=== PATIENT | female | born 1980 | race Caucasian/White ===

== ENCOUNTER 2018-08-11 13:08 | Emergency (ER) | payer MEDICAID ==
[~2018-08-11] VITALS: Ht 152.4 cm; Wt 73.1 kg
[2018-08-11 13:15] VITALS: BP 128/73; PULSE 71; Ht 152.4 cm; Wt 73.1 kg
[2018-08-11] MEDS ORDERED: KETOROLAC 30 MG INJ IM STA (13:43)
[2018-08-11] MEDS ORDERED: IBUP-1542 PO (14:48)
[2018-08-11] MEDS ORDERED: TRAM50TA2 PO (14:48)
--- NOTE | 2018-08-11 14:51 | ERD ---
ER Documentation Chief Complaint Chief Complaint back pain x 4 month; left arm numbness HPI 37-year-old female presents with neck pain rating to her left arm for last 4 months patient has a history of trauma or inciting events. She denies any chest pain, shortness breath, fevers. She also has upper back pain. ROS All systems reviewed and are negative except as per history of present illness. Medications Home Meds Active Scripts Ibuprofen* (Motrin*) 600 Mg Tab, 600 MG PO Q6, #20 TAB Prov:CELENA BHAGAT MD 08/11/18 Tramadol HCl (Tramadol HCl) 50 Mg Tablet, 50 MG PO Q4 PRN for PAIN, #16 TAB Prov:CELENA BHAGAT MD 08/11/18 FmHx Family History: No diabetes, No coronary disease, No other Physical Exam Vitals Vital Signs Date Temp Pulse Resp B/P (MAP) Pulse Ox O2 O2 Flow FiO2 Time Delivery Rate 08/11/18 98.1 71 128/73 99 13:15 (91) Physical Exam Const: No acute distress Head: Atraumatic Eyes: Normal Conjunctiva ENT: Normal External Ears, Nose and Mouth. Neck: Full range of motion. No meningismus. Tenderness primary in the left trapezius and left cervical paraspinous muscles. positive reproduction of symptoms with passive range of motion of the neck. Left upper extremity is neurovascular intact. No midline tenderness or deformities. Resp: Clear to auscultation bilaterally Cardio: Regular rate and rhythm, no murmurs Abd: Soft, non tender, non distended. Normal bowel sounds Skin: No petechiae or rashes Back: No midline or flank tenderness Ext: No cyanosis, or edema Neur: Awake and alert Psych: Normal Mood and Affect Results 24 hrs Laboratory Tests Test 08/11/18 14:02 POC Beta HCG, Qualitative NEGATIVE Current Medications Medications Dose Sig/Sima Start Time Status Last (Trade) Ordered Route PRN Stop Time Admin Dose Reason Admin Ketorolac 30 mg ONCE STAT 08/11/18 DC 08/11/18 Tromethamine IM 13:43 14:16 (Toradol) 08/11/18 13:44 Procedures/MDM X-ray C spine 3V Interpreted by me: Bones: No fracture Joints: No dislocation Foreign body: None. Impression-normal cervical spine x-ray Patient was given Toradol 30 mg IM. Patient presents with signs and symptoms of left-sided cervical radicular pain for last 4 months. Current signs or symptoms do not suggest cardiac chest pain, shortness breath, deficits, bacterial infection, additional concerning signs or symptoms. Will treat with tramadol, ibuprofen, recommendations for primary care follow-up and return precautions. The patient was stable with no new complaints during the ER course. Clinically, there is no current evidence to suggest meningitis, sepsis, acute abdomen, pneumonia, stroke, acute coronary syndrome, pulmonary embolism, aortic dissection or any other emergent condition appearing to require further evaluation or hospitalization. Patient counseled regarding my diagnostic impression and care plan. Prior to discharge all questions answered. Pt agrees with treatment plan and understands strict return precautions. Pt is instructed to follow up with primary care provider within 24-48 hours. Precautionary instructions provided including instructions to return to the ER if not improving or for any worsening or changing symptoms or concerns. Departure Diagnosis: Primary Impression: Cervical radicular pain Condition: Stable Patient Instructions: Neck Pain, No Trauma, Radiculopathy, Cervical Additional Instructions: X RAY NORMAL. PROBABLAMENE UN NERVIO DE LA NUCHA. Cheque otro vez con conner doctor primario en el proximo puga or regresa para mas o nueva simptomas. CELENA BHAGAT MD Aug 11, 2018 14:51
== END 2018-08-11 15:10 | disposition home or self-care (01) ==
LOC: FTE 13:08
DX: M54.12 Radiculopathy, cervical region (principal)
CPT/HCPCS: 72040; 81025; 96372; J1885; Z7502

== ENCOUNTER 2018-10-17 09:06 | Emergency (ER) | payer MEDICAID ==
[~2018-10-17] VITALS: Ht 152.4 cm; Wt 72.9 kg
[~2018-10-17 09:06] MED LIST: IBUP-1542 PO; TRAM50TA2 PO
[2018-10-17 09:08] VITALS: BP 123/73; PULSE 77; RESP 19; Ht 152.4 cm; Wt 72.9 kg
[2018-10-17] MEDS ORDERED: MECL12.574 PO (09:37)
[2018-10-17] MEDS ORDERED: IBUP-1542 PO (09:37)
--- NOTE | 2018-10-17 09:38 | ERD ---
ER Documentation Chief Complaint Chief Complaint C/O MEDIAL BACK PAIN X4 MONTHS, DIZZINESS AND VOMITING X5 DAYS HPI 38-year-old female presents complaining of dizziness since 5 days ago. She reports that she was randomly getting dizzy throughout the day without any triggers. She denies any falls or loss of consciousness. She reports previous episode of dizziness about 8 years ago in which she seek medical care for and was diagnosed with stress and anxiety. She was treated for anxiety disorder. She reports that she is not as stressed this time around. She has not taken any medication. She also reports chronic back pain x4 months. She reports that she came to the ER in the past and was treated with ibuprofen that helped her back pain. She denies any changes to her back pain or any new symptoms. He is a sking for refill of her ibuprofen for her back pain. ROS All systems reviewed and are negative except as per history of present illness. Medications Home Meds Active Scripts Ibuprofen* (Motrin*) 600 Mg Tab, 600 MG PO Q8, #30 TAB Prov:ANDRZEJ BARLOW PA-C 10/17/18 Meclizine Hcl* (Antivert*) 12.5 Mg Tab, 25 MG PO Q6H PRN for DIZZINESS, #20 TAB Prov:ANDRZEJ BARLOW PA-C 10/17/18 Ibuprofen* (Motrin*) 600 Mg Tab, 600 MG PO Q6, #20 TAB Prov:CELENA BHAGAT MD 08/11/18 Tramadol HCl (Tramadol HCl) 50 Mg Tablet, 50 MG PO Q4 PRN for PAIN, #16 TAB Prov:CELENA BHAGAT MD 08/11/18 Allergies Allergies: Coded Allergies: No Known Allergy (Unverified , 10/17/18) PMhx/Soc Medical and Surgical Hx: pt denies Medical Hx Hx Alcohol Use: No Hx Substance Use: No Hx Tobacco Use: No FmHx Family History: diabetes Physical Exam Vitals Vital Signs Date Temp Pulse Resp B/P (MAP) Pulse Ox O2 O2 Flow FiO2 Time Delivery Rate 10/17/18 97.2 77 19 123/73 99 09:08 (90) Physical Exam Const: No acute distress Head: Atraumatic Eyes: Normal Conjunctiva ENT: Normal External Ears, Nose and Mouth. Neck: Full range of motion. Resp: Clear to auscultation bilaterally Cardio: Regular rate and rhythm, no murmurs Abd: Soft, non tender, non distended. Normal bowel sounds Skin: No petechiae or rashes Back: Slight tenderness along thoracic midline Ext: No cyanosis, or edema Neur: Awake and alert, no pronator drift, equal sensation and motor strength bilaterally. Cranial nerves II through XII intact Psych: Normal Mood and Affect Results 24 hrs Current Medications Medications Dose Sig/Sima Start Time Status Last (Trade) Ordered Route PRN Stop Time Admin Dose Reason Admin Meclizine 25 mg ONCE ONCE 10/17/18 DC 10/17/18 HCl PO 10:00 09:38 (Antivert) 10/17/18 10:01 Procedures/MDM ED COURSE: The patient was stable throughout ED course. I kept the patient informed of laboratory and diagnostic imaging results throughout the ED course. MEDICATIONS GIVEN: Meclizine Patient tolerated medication well with no adverse reactions. Patient reported improvement in pain. MEDICAL DECISION MAKING: Patient is a 38-year-old female presenting with dizziness x5 days. In the past she has had a previous episode of dizziness and was diagnosed and treated for an anxiety attack. She reports any stressors or anxiety symptoms at this time. This appears to be an episode of vertigo. She was given an dose of meclizine in the ED helped relieve the symptoms but the patient was having. H&P and other data not c/w emergent process (eg. CVA, severe anemia, ACS, arrhythmia, ectopic). She was discharged with a prescription of vertigo. She also reports history of chronic back pain. She was tender midline thoracic region. The pain did not radiate anywhere and appears to be musculoskeletal. Reports that ibuprofen helps the back pain. She is asking for refill of her prescription. She was discharged with ibuprofen. Her vital signs were reviewed. Patient is afebrile. Patient was not hypoxic. Patient was hemodynamically stable. PRESCRIPTION: Meclizine and ibuprofen DISCHARGE: At this time, patient is stable for discharge and outpatient management. I have instructed the patient to follow-up with his/her primary care physician in 1-2 days. I have discussed with the patient the possibility of needing to see a specialist for further workup and imaging studies if symptoms persist. I have instructed the patient to promptly return to the ER for any new or worsening symptoms including increased pain, fever, nausea, vomiting, weakness or LOC. The patient and/or family expressed understanding of and agreement with this plan. All questions were answered. Home care instructions were provided. Disclaimer: Inadvertent spelling and grammatical errors are likely due to EHR/dictation software use and do not reflect on the overall quality of patient care. Also, please note that the electronic time recorded on this note does not necessarily reflect the actual time of the patient encounter. Departure Diagnosis: Primary Impression: Vertigo Additional Impression: Back pain Back pain location: thoracic back pain Chronicity: chronic Back pain laterality: unspecified Qualified Codes: M54.6 - Pain in thoracic spine; G89.29 - Other chronic pain Condition: Fair Patient Instructions: Back Pain (Acute Or Chronic), Vertigo, Unspecified Referrals: [facility] YOU HAVE RECEIVED A MEDICAL SCREENING EXAM AND THE RESULTS INDICATE THAT YOU DO NOT HAVE A CONDITION THAT REQUIRES URGENT TREATMENT IN THE EMERGENCY DEPARTMENT. FURTHER EVALUATION AND TREATMENT OF YOUR CONDITION CAN WAIT UNTIL YOU ARE SEEN IN YOUR DOCTORS OFFICE WITHIN THE NEXT 1-2 DAYS. IT IS YOUR RESPONSIBILITY TO MAKE AN APPOINTMENT FOR FOLOW-UP CARE. IF YOU HAVE A PRIMARY DOCTOR --you should call your primary doctor and schedule an appointment IF YOU DO NOT HAVE A PRIMARY DOCTOR YOU CAN CALL OUR PHYSICIAN REFERRAL HOTLINE AT IF YOU CAN NOT AFFORD TO SEE A PHYSICIAN YOU CAN CHOSE FROM THE FOLLOWING [facility] [address] [facility]. [facility] [address] [facility]. [facility] [address] [facility]. [facility] [address] [facility] [facility] [address] [facility]. [facility]. [address] [facility]. [facility] YOU HAVE RECEIVED A MEDICAL SCREENING EXAM AND THE RESULTS INDICATE THAT YOU DO NOT HAVE A CONDITION THAT REQUIRES URGENT TREATMENT IN THE EMERGENCY DEPARTMENT. FURTHER EVALUATION AND TREATMENT OF YOUR CONDITION CAN WAIT UNTIL YOU ARE SEEN IN YOUR DOCTORS OFFICE WITHIN THE NEXT 1-2 DAYS. IT IS YOUR RESPONSIBILITY TO MAKE AN APPOINTMENT FOR FOLOW-UP CARE. IF YOU HAVE A PRIMARY DOCTOR --you should call your primary doctor and schedule and appointment IF YOU DO NOT HAVE A PRIMARY DOCTOR YOU CAN CALL OUR PHYSICIAN REFERRAL HOTLINE AT . IF YOU CAN NOT AFFORD TO SEE A PHYSICIAN YOU CAN CHOSE FROM THE FOLLOWING [facility] INSTITUTIONS: [facility] [id number] [place] [address] [facility] [address] [place] [address] [facility] + [facility] [address] [place] [address] Additional Instructions: Llame al doctor MAANA y kendall cleo MAX PARA DENTRO DE 1-2 POND.Dgale a la secretaria que nosotros le instruimos hacer esta max.Avise o llame si conner condicin se empeora antes de la max. Regresa aqui si peor o no mejor. ANDRZEJ BARLOW PA-C Oct 17, 2018 09:38
[2018-10-17] MEDS ORDERED: MECLIZINE 12.5 MG TAB PO ONE (10:00)
== END 2018-10-17 09:47 | disposition home or self-care (01) ==
LOC: FTE 09:06
DX: M54.6 Pain in thoracic spine (principal)
CPT/HCPCS: Z7502; Z7610; 99282